=== PATIENT | male | born 1940 | race Caucasian/White ===

== ENCOUNTER 2016-07-27 11:20 | Inpatient (IN) | payer MEDICARE ==
[2016-07-27] MEDS ORDERED: SODIUM CHLORIDE 0.9% 10 ML FLUSH FLUSH PRN (11:42)
[2016-07-27 11:51] LABS: AUTOMATED BASOPHIL 0.3 % (0-2); AUTOMATED EOSINOPHIL 0.4 % (0-5); AUTOMATED LYMPH 11.3 % (17-44); AUTOMATED MONOCYTE 6.9 % (3-10); AUTOMATED NEUTROPHIL 81.1 % (45-76); MPV 11.1 fL (7.4-10.4)
[2016-07-27 12:06] LABS: PARTIAL THROMB. TIME 25.6 SEC (22-35); PT-INR 1.2
[2016-07-27 12:08] LABS: BLOOD UREA NITROGEN 15 MG/DL (9-20); CALCIUM 9.2 MG/DL (8.4-10.2); CALCULATED OSMOLALITY 267 MOs/Kg (270-290); CHLORIDE 99 mEq/L (98-107); GLUCOSE 201 MG/DL (70-99); SODIUM LEVEL 135 mEq/L (137-146); TOTAL PROTEIN 8.1 G/DL (6.3-8.2)
[2016-07-27] MEDS ORDERED: METOPROLOL 5 MG/5 ML SDV IV ONE (12:09)
[2016-07-27] MEDS ORDERED: HYDROmorphone 1 MG INJECTION IV ONE (12:09)
--- NOTE | 2016-07-27 12:15 | DIRPT ---
CLINICAL DATA: 89-year-old male with headache. Right-sided weakness. Initial encounter. EXAM: CT HEAD WITHOUT CONTRAST TECHNIQUE: Contiguous axial images were obtained from the base of the skull through the vertex without intravenous contrast. COMPARISON: None. FINDINGS: No intracranial hemorrhage. Small vessel disease type changes. Slightly dense left carotid terminus. Thrombus not excluded. No other definitive findings of large acute thrombotic infarct. MR and MR angiogram may prove helpful for further delineation. Global atrophy. Ventricular prominence felt to be related to atrophy rather hydrocephalus. No intracranial mass lesion noted on this unenhanced exam. Vascular calcifications. Post lens replacement. Mastoid air cells, middle ear cavities and visualized paranasal sinuses are relatively clear with minimal mucosal thickening left maxillary sinus. IMPRESSION: No intracranial hemorrhage. Small vessel disease type changes. Slightly dense left carotid terminus. Thrombus not excluded. No other definitive findings of large acute thrombotic infarct. MR and MR angiogram may prove helpful for further delineation. Global atrophy. These results were called by telephone at the time of interpretation on 07/27/2016 at 12:04 pm to DL HILL, who verbally acknowledged these results. Electronically Signed By: Joel Lim M.D. On: 07/27/2016 12:12
--- NOTE | 2016-07-27 12:35 | EDPRACDOC ---
- General Information Information Source: Patient, Family - History of Present Illness Onset: YEST HPI: PT PRESENTS TODAY WITH FAMILY FOR WYMAN AND POSSIBLE STROKE. PT STATES THAT HE BEGAN HAVING A WYMAN LAST NIGHT AND WHEN FAMILY CAME TO PICK PT UP TODAY FOR THEIR USUAL OUTING, FAMILY NOTED LEFT SIDED FACIAL DROOP. PTS ONLY COMPLAINT IS WYMAN. APPARENT FACIAL DROOP, BUT PT APPEARS STABLE. Location: Reports: Generalized Pain Quality: Reports: Severe, Throbbing Relevant History of: Reports: None Associated Signs and Symptoms: Reports: Other <Darline Stanley - Last Filed: 07/27/16 13:00> <Pete Gupta - Last Filed: 07/27/16 13:19> - General Information Chief Complaint: Headache Stated Complaint: HEADACHE Time Seen by Provider: 07/27/16 11:41 Home Medications: Home Medications Alfuzosin HCl [Alfuzosin HCl ER] 10 mg PO DAILY 07/27/16 Amlodipine [Norvasc] 5 mg PO HS 07/27/16 Benazepril HCl [Lotensin] 20 mg PO QAM 07/27/16 MetFORMIN (Immediate Release) [GLUCOPHAGE Immed Release] 1,000 mg PO BID Metoprolol Tartrate [Lopressor] 100 mg PO BID 07/27/16 Simvastatin [Zocor] 40 mg PO HS 07/27/16 Allergies/Adverse Reactions: Allergies Allergy/AdvReac Type Severity Reaction Status Date / Time No Known Allergies Allergy Verified 07/27/16 11:26 ED Past Medical History - History Reviewed Yes Nurses notes reviewed and agree except as marked - Patient Medical History Cardiac History: Reports: Hypertension, Heart Attack Psychological History: Denies: Depression - Social Medical History Smoking Status: Former smoker <Darline Stanley - Last Filed: 07/27/16 13:00> EDM Review of Systems - Review of Systems ROS Negative Except as Marked: Yes All systems reviewed and were negative except as marked ROS Unobtainable: Yes Hx Limited due to age/level of understanding of patient Constitutional: No Symptoms Reported Eyes: No Symptoms Reported Respiratory: No Symptoms Reported Cardiovascular: No Symptoms Reported Gastrointestinal: No Symptoms Reported Neurological: Headache, Speech Difficulty Musculoskeletal: No Symptoms Reported <Darline Stanley - Last Filed: 07/27/16 13:00> - Physical Exam Constitutional: Alert (Awake), No apparent distress Oriented to: Time, Person, Place Last recorded Vital Signs: Last Vital Signs Temp 97.3 F L 07/27/16 11:21 Pulse 97 07/27/16 12:16 Resp 18 07/27/16 12:16 BP 183/96 H 07/27/16 12:16 Pulse Ox 94 07/27/16 12:16 Oxygen Pulse Oxygen Saturation 94 O2 Device Room Air Oxygen Flow Rate Fraction of Inspired Oxygen ( FIO2) - HEENT Head: Normal Eye Exam: Normal Neck: Normal, Denies Pain, Midline - Respiratory/Cardiovascular Respiratory: Normal - CTA Cardiovascular: Tachycardia, Irregular - GI Palpation: Normal Tenderness: Non tender - Musculoskeletal Back: Normal Extremities: Normal - Integumentary Skin: Normal Lymphatics: Normal - Neurologic Mood Description: Appropriate, Calm <Darline Stanley - Last Filed: 07/27/16 13:00> - Physical Exam Last recorded Vital Signs: Last Vital Signs Temp 97.3 F L 07/27/16 11:21 Pulse 72 07/27/16 13:00 Resp 18 07/27/16 13:00 BP 196/98 H 07/27/16 13:00 Pulse Ox 93 07/27/16 13:00 Oxygen Pulse Oxygen Saturation 93 O2 Device Nasal Cannula Oxygen Flow Rate 2 Fraction of Inspired Oxygen ( FIO2) <Pete Gupta - Last Filed: 07/27/16 13:19> - Re-evaluation Re-evaluation 1 Re-evaluation Time: 12:53 Re-evaluation: PT WAS GIVEN METOPROLOL AND DILAUDID FOR BP AND WYMAN. MEDS WERE PUSHED SLOWLY PER CRISMA. PT SUDDENLY FELT VERY NAUSEATED AND SHOB. BP DROPPED FROM 183/96 TO 120/64 IN A MATTER OF 45 MINS. SECOND IV LINE WAS STARTED AND 2 BAGS OF NS WERE HUNG. EKG WAS REPEATED. PT SLOWLY BEGAN TO FEEL BETTER SHORTLY AFTER THE BOLUS. DR. GUPTA NOTIFIED. WITH FURTHER RESEARCH, PT STATED THAT HE STOPPED ALL OF HIS MEDICATIONS ( UNSURE TO WHY), INCLUDING METOPROLOL, WHICH WAS CONTROLLING HIS AFIB. PT HAS NEVER BEEN ON ANTICOAGULANTS. - Results 07/27/16 11:40 07/27/16 11:40 WBC 6.9 xk/uL (3.8-10.8) 07/27/16 11:40 RBC 5.49 xM/uL (4.70-6.10) 07/27/16 11:40 Hgb 16.9 g/dL (14.0-18.0) 07/27/16 11:40 Hct 50.5 % (42-52) 07/27/16 11:40 MCV 92 fL (80-94) 07/27/16 11:40 MCH 30.7 pg (27-32) 07/27/16 11:40 MCHC 33.4 g/dl (33-36) 07/27/16 11:40 RDW 13.7 % (11.5-14.5) 07/27/16 11:40 Plt Count 102 xk/uL (130-400) L 07/27/16 11:40 MPV 11.1 fL (7.4-10.4) H 07/27/16 11:40 Neut % (Auto) 81.1 % (45-76) H 07/27/16 11:40 Lymph % (Auto) 11.3 % (17-44) L 07/27/16 11:40 [place] % (Auto) 6.9 % (3-10) 07/27/16 11:40 Eos % (Auto) 0.4 % (0-5) 07/27/16 11:40 Baso % (Auto) 0.3 % (0-2) 07/27/16 11:40 Absolute Neuts (auto) 5.59 xk/uL (1.7-8.2) 07/27/16 11:40 Absolute Lymphs (auto) 0.76 xk/uL (0.65-4.75) 07/27/16 11:40 PT 12.0 SEC (9.2-11.2) H 07/27/16 11:40 INR 1.2 07/27/16 11:40 APTT 25.6 SEC (22-35) 07/27/16 11:40 Sodium 135 mEq/L (137-146) L 07/27/16 11:40 Potassium 4.5 mEq/L (3.5-5.1) 07/27/16 11:40 Chloride 99 mEq/L (98-107) 07/27/16 11:40 Carbon Dioxide 22 mMOL/L (22-33) 07/27/16 11:40 Anion Gap 19 mEq/L (8-16) H 07/27/16 11:40 BUN 15 MG/DL (9-20) 07/27/16 11:40 Creatinine 0.70 MG/DL (0.66-1.25) 07/27/16 11:40 Estimated GFR (MDRD) > 60 mL/min (>=60) 07/27/16 11:40 Glucose 201 MG/DL (70-99) H 07/27/16 11:40 Calculated Osmolality 267 MOs/Kg (270-290) L 07/27/16 11:40 Calcium 9.2 MG/DL (8.4-10.2) 07/27/16 11:40 Total Bilirubin 1.1 MG/DL (0.2-1.3) 07/27/16 11:40 AST 27 IU/L (17-59) 07/27/16 11:40 ALT 40 IU/L (21-72) 07/27/16 11:40 Alkaline Phosphatase 77 IU/L (50-160) 07/27/16 11:40 Troponin I 0.02 ng/mL (<.04) 07/27/16 11:40 Total Protein 8.1 G/DL (6.3-8.2) 07/27/16 11:40 Albumin 4.4 G/DL (3.5-5.0) 07/27/16 11:40 Lab Results 07/27/16 07/27/16 07/27/16 11:40 11:40 11:40 WBC 6.9 RBC 5.49 Hgb 16.9 Hct 50.5 MCV 92 MCH 30.7 MCHC 33.4 RDW 13.7 Plt Count 102 L MPV 11.1 H Neut % (Auto) 81.1 H Lymph % (Auto) 11.3 L [place] % (Auto) 6.9 Eos % (Auto) 0.4 Baso % (Auto) 0.3 Absolute Neuts (auto) 5.59 Absolute Lymphs (auto) 0.76 PT 12.0 H INR 1.2 APTT 25.6 Sodium 135 L Potassium 4.5 Chloride 99 Carbon Dioxide 22 Anion Gap 19 H BUN 15 Creatinine 0.70 Estimated GFR (MDRD) > 60 Glucose 201 H Calculated Osmolality 267 L Calcium 9.2 Total Bilirubin 1.1 AST 27 ALT 40 Alkaline Phosphatase 77 Troponin I 0.02 Total Protein 8.1 Albumin 4.4 - EKG EKG #1 EKG Time: 11:39 -: Yes EKG interpreted by me Rate: bpm: 105 [place]: Normal Rhythm: Afib Block: None Hypertrophy: None ST: Normal EKG #2 EKG Time: 12:43 -: Yes EKG interpreted by me Rate: bpm: 66 [place]: Normal Rhythm: Afib Block: None Hypertrophy: None ST: Normal - Additional Information PT HAS APPARENT LEFT FACIAL DROOP AND LEFT ANTENNA RIGGER WEAKNESS. WHEN ASKED TO READ SIMPLE WORDS, PT IS UNABLE TO. SON STATES HE READS THE NEWS PAPER DAILY. PT STATES THAT HE CAN SEE ALL LETTERS. PT IS ABLE TO IDENTIFY OBJECTS. <JadenDarline galarza K - Last Filed: 07/27/16 13:00> - Results 07/27/16 11:40 07/27/16 11:40 WBC 6.9 xk/uL (3.8-10.8) 07/27/16 11:40 RBC 5.49 xM/uL (4.70-6.10) 07/27/16 11:40 Hgb 16.9 g/dL (14.0-18.0) 07/27/16 11:40 Hct 50.5 % (42-52) 07/27/16 11:40 MCV 92 fL (80-94) 07/27/16 11:40 MCH 30.7 pg (27-32) 07/27/16 11:40 MCHC 33.4 g/dl (33-36) 07/27/16 11:40 RDW 13.7 % (11.5-14.5) 07/27/16 11:40 Plt Count 102 xk/uL (130-400) L 07/27/16 11:40 MPV 11.1 fL (7.4-10.4) H 07/27/16 11:40 Neut % (Auto) 81.1 % (45-76) H 07/27/16 11:40 Lymph % (Auto) 11.3 % (17-44) L 07/27/16 11:40 [place] % (Auto) 6.9 % (3-10) 07/27/16 11:40 Eos % (Auto) 0.4 % (0-5) 07/27/16 11:40 Baso % (Auto) 0.3 % (0-2) 07/27/16 11:40 Absolute Neuts (auto) 5.59 xk/uL (1.7-8.2) 07/27/16 11:40 Absolute Lymphs (auto) 0.76 xk/uL (0.65-4.75) 07/27/16 11:40 PT 12.0 SEC (9.2-11.2) H 07/27/16 11:40 INR 1.2 07/27/16 11:40 APTT 25.6 SEC (22-35) 07/27/16 11:40 Sodium 135 mEq/L (137-146) L 07/27/16 11:40 Potassium 4.5 mEq/L (3.5-5.1) 07/27/16 11:40 Chloride 99 mEq/L (98-107) 07/27/16 11:40 Carbon Dioxide 22 mMOL/L (22-33) 07/27/16 11:40 Anion Gap 19 mEq/L (8-16) H 07/27/16 11:40 BUN 15 MG/DL (9-20) 07/27/16 11:40 Creatinine 0.70 MG/DL (0.66-1.25) 07/27/16 11:40 Estimated GFR (MDRD) > 60 mL/min (>=60) 07/27/16 11:40 Glucose 201 MG/DL (70-99) H 07/27/16 11:40 Calculated Osmolality 267 MOs/Kg (270-290) L 07/27/16 11:40 Calcium 9.2 MG/DL (8.4-10.2) 07/27/16 11:40 Total Bilirubin 1.1 MG/DL (0.2-1.3) 07/27/16 11:40 AST 27 IU/L (17-59) 07/27/16 11:40 ALT 40 IU/L (21-72) 07/27/16 11:40 Alkaline Phosphatase 77 IU/L (50-160) 07/27/16 11:40 Troponin I 0.02 ng/mL (<.04) 07/27/16 11:40 Total Protein 8.1 G/DL (6.3-8.2) 07/27/16 11:40 Albumin 4.4 G/DL (3.5-5.0) 07/27/16 11:40 Lab Results 07/27/16 07/27/16 07/27/16 11:40 11:40 11:40 WBC 6.9 RBC 5.49 Hgb 16.9 Hct 50.5 MCV 92 MCH 30.7 MCHC 33.4 RDW 13.7 Plt Count 102 L MPV 11.1 H Neut % (Auto) 81.1 H Lymph % (Auto) 11.3 L [place] % (Auto) 6.9 Eos % (Auto) 0.4 Baso % (Auto) 0.3 Absolute Neuts (auto) 5.59 Absolute Lymphs (auto) 0.76 PT 12.0 H INR 1.2 APTT 25.6 Sodium 135 L Potassium 4.5 Chloride 99 Carbon Dioxide 22 Anion Gap 19 H BUN 15 Creatinine 0.70 Estimated GFR (MDRD) > 60 Glucose 201 H Calculated Osmolality 267 L Calcium 9.2 Total Bilirubin 1.1 AST 27 ALT 40 Alkaline Phosphatase 77 Troponin I 0.02 Total Protein 8.1 Albumin 4.4 <Pete Gupta - Last Filed: 07/27/16 13:19> - Departure Disposition: Admit IP To This Hospital <Darline Stanley - Last Filed: 07/27/16 13:00> - Departure Yes I personally saw and evaluated the patient. Disposition: Admit IP To This Hospital Decision to Admit Time: 13:18 Decision to admit date: 07/27/16 Decision to admit: from ED - Physician Consulted Hospitalist Time Called: 13:18 Provider Called: Cecilia Pruitt Time Corporate Sales Representative Returned Call: 13:19 <Pete Gupta - Last Filed: 07/27/16 13:19> - Departure Condition: Fair Final Diagnosis: Non compliance w medication regimen CVA (cerebral vascular accident) Qualifiers: CVA mechanism: unspecified Qualified Code(s): I63.9 - Cerebral infarction, unspecified Atrial fibrillation Qualifiers: Atrial fibrillation type: chronic Qualified Code(s): I48.2 - Chronic atrial fibrillation Instructions: Atrial Fibrillation (ED)
[2016-07-27] MEDS ORDERED: ONDANSETRON HCL 4 MG/2 ML VIAL IV ONE (12:59)
[2016-07-27] MEDS: NS 1,000 ML IV SCH ×2 (13:00→14:11)
--- NOTE | 2016-07-27 13:13 | DIRPT ---
CLINICAL DATA: Chest pain, headache and weakness. EXAM: PORTABLE CHEST 1 VIEW COMPARISON: None. FINDINGS: Cardiomediastinal silhouette is normal. Mediastinal contours appear intact. There is no evidence of focal airspace consolidation, pleural effusion or pneumothorax. There is elevation of the left hemidiaphragm with secondary volume loss of the left lung base. Osseous structures are without acute abnormality. Soft tissues are grossly normal. IMPRESSION: No active disease. Elevation of the left hemidiaphragm. Query left phrenic nerve injury. Electronically Signed By: Jess Mead M.D. On: 07/27/2016 13:10
[2016-07-27] MEDS ORDERED: TUSSIONEX 5 ML ORAL SYRINGE PO PRN (13:21)
[2016-07-27] MEDS ORDERED: DEXTROSE 25 GM/50 ML PFS IV PRN (13:21)
[2016-07-27] MEDS ORDERED: GLUCAGON 1 MG VIAL SQ PRN (13:21)
[2016-07-27] MEDS ORDERED: GLUCOSE (ORAL GEL) 15 GM TUBE PO PRN (13:21)
[2016-07-27] MEDS ORDERED: ONDANSETRON HCL 4 MG/2 ML VIAL IV PRN (13:21)
[2016-07-27] MEDS ORDERED: BENZONATATE 100 MG PERLES PO PRN (13:21)
[2016-07-27] MEDS ORDERED: BISACODYL 10 MG SUPP PR PRN (13:21)
[2016-07-27] MEDS ORDERED: ACETAMINOPHEN 325 MG SUPP PR PRN (13:21)
[2016-07-27] MEDS ORDERED: SENNA CONCENTRATE TAB PO PRN (13:21)
[2016-07-27] MEDS ORDERED: PROMETHAZINE 25 MG/ML VIAL IV PRN (13:21)
[2016-07-27] MEDS ORDERED: ATORVASTATIN 40 MG TAB PO ONE (13:29)
--- NOTE | 2016-07-27 13:32 | HISTPHYS ---
- Chief Complaint Blurred vision and stumbling - History of Present Illness Patient is a 75-year-old white male whose has agoraphobia. On weekends 1 of his sons will come by to pick him up for lunch. He was noted was noted by his son to be stumbling as he walked to the vehicle. Son was concerned he had a stroke when he noticed the left side of his face drooping. With this he was brought into the emergency room complaining for further evaluation. CT of the head failed to show any evidence of acute stroke but he did have some suggestion of significant tapering of the left carotid artery. On examination he was noted by the emergency room physician have weak left upper extremity left-sided neglect and left facial weakness with mild confusion. I discussed this with the family friend who was in the room at the time of my examination and she indicated that this is unusual for him. Significant is past his that he stopped his antihypertensive therapy within the past few months because of fear of his blood pressure dropping too low. He also was concerned about his blood sugar dropping with the glyburide which was discontinued as well. He did however continue his 325 mg aspirin, Zocor, as well as metformin 1000 mg twice daily. He claims to have quit smoking at least 48 years ago and does not drink alcoholic beverages. He mentions a coronary artery stent 7 years ago placed [address] Dr[address] Manrique at [facility]. - Medical History Cardiac History: Reports: Coronary Artery Disease, Atrial Fibrillation, Hypertension, Heart Attack Respiratory History: Reports: No Significant History GI/ History: Reports: No Significant History Musculoskeletal History: Reports: Arthritis Systemic History: Reports: Cancer (Prostate) Neurological History: Reports: No Significant History Psychological History: Denies: Depression - Surgical History Reports: Other (Bilateral lens implants, abdominal hernia repair) - Medictions/Allergies Allergies No Known Allergies Allergy (Verified 07/27/16 11:26) Current Medication List: Reviewed Home Medications Alfuzosin HCl [Alfuzosin HCl ER] 10 mg PO DAILY 07/27/16 Amlodipine [Norvasc] 5 mg PO HS 07/27/16 Benazepril HCl [Lotensin] 20 mg PO QAM 07/27/16 MetFORMIN (Immediate Release) [GLUCOPHAGE Immed Release] 1,000 mg PO BID Metoprolol Tartrate [Lopressor] 100 mg PO BID 07/27/16 Simvastatin [Zocor] 40 mg PO HS 07/27/16 - Family History Reports: Hypertension, Diabetes - Social History Travel Outside of [place] in the Last 3 Months?: No Lives: with Spouse Smoking Status: Former smoker Social History: Denies: Alcohol Use, Substance Use Disorder - Review of Systems Yes Review of systems cannot be obtained due to the patient's medical condition - Physical Exam Vital Signs: Initial Vitals Temperature 97.3 F L 07/27/16 11:21 Pulse Rate 113 07/27/16 11:21 Respiratory Rate 20 07/27/16 11:21 Blood Pressure 177/105 H 07/27/16 11:21 Pulse Oxygen Saturation 95 07/27/16 11:21 Constitutional: No apparent distress, Alert Oriented to: Person, Place - HEENT Head: Normal (normocephalic, atraumatic.), Other (No cervical lymphadenopathy. No supraclavicular lymphadenopathy. Neck: No palpable mass, supple , trachea midline.) Eye: Other (Dysconjugate gaze and states everything is blurry with the use of his glasses). negative: Conjunctival Injection, Edema, Pale Conjunctiva, Scleral Icterus Oropharynx: Normal (Pharynx: Moist without exudate,Gums-no swelling, No oropharyngeal lesions or erythema, Mucous membranes are dry. But does have weakness left facial muscle.) ENT EAC: Normal (No oropharyngeal lesions or erythema. Mucous membranes are dry. ) TMJ: Normal. negative: Crepitance, Tender Nose: No Symptoms Reported (septum midline, Nares patent, without discharge or bleeding.) Respiratory: Normal - CTA (Clear to auscultation bilaterally. No wheezing, rales , rhonchi. Chest wall movements are symmetric. No use of accessory muscles to breathe.) Cardiovascular: Normal (RRR , Normal S1, S2. No murmurs, rubs, or gallops. PMI non-displaced. Carotids: no carotid bruits. No bradycardia or tachycardia. DP pulses 2+ bilaterally.) - GI Auscultation: Normal (normal active sounds) Palpation: Normal (Soft,non distended,nontender. No hepatosplenomegaly.) Tenderness: Non tender (No rebound or guarding) Gtz's Sign: Negative - Musculoskeletal Back: Normal (Non-Tender) Extremities: Normal (Normal tone, DP pulses 2+ bilaterally, No cyanosis or edema bilaterally, FROM bilaterally.) Spine: non-tender, normal alignment, limited range of motion - Integumentary Skin: Normal (Clean, dry, and intact. No rashes. No lesions.) Lymphatics: Normal (No cervical lymphadenopathy. No supraclavicular lymphadenopathy.) - Neurologic Memory Impaired: Short-term Motor Function: Abnormal (Mild left upper extremity weakness) Cranial Nerve: negative: Normal (Left facial weakness) Cerebellar: Past-Pointing Mood Description: Normal (Fully oriented. Normal and appropriate affect.) Thought: Coherent (But confused) Perception: Normal (Normal and appropriate affect.) - Focused CV Perfusion Exam Vital Signs: Last Vital Signs Temp 97.3 F L 07/27/16 11:21 Pulse 72 07/27/16 13:00 Resp 18 07/27/16 13:00 BP 196/98 H 07/27/16 13:00 Pulse Ox 93 07/27/16 13:00 - Lab Results 07/27/16 11:40 07/27/16 11:40 Laboratory Results - last 24 hr 07/27/16 07/27/16 07/27/16 11:30 11:30 11:40 WBC RBC Hgb Hct MCV MCH MCHC RDW Plt Count MPV Neut % (Auto) Lymph % (Auto) [place] % (Auto) Eos % (Auto) Baso % (Auto) Absolute Neuts (auto) Absolute Lymphs (auto) ESR PT INR APTT Sodium 135 L Potassium 4.5 Chloride 99 Carbon Dioxide 22 Anion Gap 19 H BUN 15 Creatinine 0.70 Estimated GFR (MDRD) > 60 Glucose 201 H Hemoglobin A1c 7.8 H Calculated Osmolality 267 L Calcium 9.2 Total Bilirubin 1.1 AST 27 ALT 40 Alkaline Phosphatase 77 Troponin I 0.02 Total Protein 8.1 Albumin 4.4 TSH 2.42 Urine Color Urine Clarity Urine pH Ur Specific [place] Urine Protein Urine Glucose (UA) Urine Ketones Urine Occult Blood Urine Nitrite Urine Bilirubin Urine Urobilinogen Ur Leukocyte Esterase Urine RBC Urine WBC Ur Epithelial Cells Urine Bacteria Hyaline Casts Urine Mucus 07/27/16 07/27/16 07/27/16 11:40 11:40 14:45 WBC 6.9 RBC 5.49 Hgb 16.9 Hct 50.5 MCV 92 MCH 30.7 MCHC 33.4 RDW 13.7 Plt Count 102 L MPV 11.1 H Neut % (Auto) 81.1 H Lymph % (Auto) 11.3 L [place] % (Auto) 6.9 Eos % (Auto) 0.4 Baso % (Auto) 0.3 Absolute Neuts (auto) 5.59 Absolute Lymphs (auto) 0.76 ESR PT 12.0 H INR 1.2 APTT 25.6 Sodium Potassium Chloride Carbon Dioxide Anion Gap BUN Creatinine Estimated GFR (MDRD) Glucose Hemoglobin A1c Calculated Osmolality Calcium Total Bilirubin AST ALT Alkaline Phosphatase Troponin I 0.02 Total Protein Albumin TSH Urine Color Urine Clarity Urine pH Ur Specific [place] Urine Protein Urine Glucose (UA) Urine Ketones Urine Occult Blood Urine Nitrite Urine Bilirubin Urine Urobilinogen Ur Leukocyte Esterase Urine RBC Urine WBC Ur Epithelial Cells Urine Bacteria Hyaline Casts Urine Mucus 07/27/16 07/27/16 07/27/16 14:45 15:42 17:25 WBC RBC Hgb Hct MCV MCH MCHC RDW Plt Count MPV Neut % (Auto) Lymph % (Auto) [place] % (Auto) Eos % (Auto) Baso % (Auto) Absolute Neuts (auto) Absolute Lymphs (auto) ESR 1 PT INR APTT Sodium Potassium Chloride Carbon Dioxide Anion Gap BUN Creatinine Estimated GFR (MDRD) Glucose Hemoglobin A1c Calculated Osmolality Calcium Total Bilirubin AST ALT Alkaline Phosphatase Troponin I 0.02 Total Protein Albumin TSH Urine Color Yellow Urine Clarity Clear Urine pH 6.0 Ur Specific [place] 1.020 Urine Protein 1+ H Urine Glucose (UA) 2+ Urine Ketones 1+ H Urine Occult Blood Neg Urine Nitrite Neg Urine Bilirubin Neg Urine Urobilinogen 0.2 Ur Leukocyte Esterase Neg Urine RBC 0-2 Urine WBC 2-5 H Ur Epithelial Cells Occ Urine Bacteria Few Hyaline Casts 5-10 H Urine Mucus Sm amt - Diagnostic Findings CT of the head showed the following: FINDINGS: No intracranial hemorrhage. Small vessel disease type changes. Slightly dense left carotid terminus. Thrombus not excluded. No other definitive findings of large acute thrombotic infarct. MR and MR angiogram may prove helpful for further delineation. Global atrophy. Ventricular prominence felt to be related to atrophy rather hydrocephalus. No intracranial mass lesion noted on this unenhanced exam. Vascular calcifications. Post lens replacement. Mastoid air cells, middle ear cavities and visualized paranasal sinuses are relatively clear with minimal mucosal thickening left maxillary sinus. IMPRESSION: No intracranial hemorrhage. Small vessel disease type changes. Slightly dense left carotid terminus. Thrombus not excluded. No other definitive findings of large acute thrombotic infarct. MR and MR angiogram may prove helpful for further delineation. Global atrophy. These results were called by telephone at the time of interpretation on 07/27/2016 at 12:04 pm to DL HILL, who verbally acknowledged these results. Carotid Doppler failed to show any evidence of internal carotid artery stenosis, just right external carotid artery stenosis. - Assessment (1) CVA (cerebral vascular accident) I63.9 - CEREBRAL INFARCTION, UNSPECIFIED Acute Present on Admission: Yes Qualifiers: CVA mechanism: occlusion Precerebral and cerebral artery: middle cerebral artery Laterality of affected vessel: right Qualified Code(s): I63.511 - Cerebral infarction due to unspecified occlusion or stenosis of right middle cerebral artery MRI is ordered for tomorrow morning. Physical occupational and speech therapies are requested. (2) Hyperlipidemia E78.5 - HYPERLIPIDEMIA, UNSPECIFIED Chronic Present on Admission: Yes Qualifiers: Hyperlipidemia type: mixed hyperlipidemia Qualified Code(s): E78.2 - Mixed hyperlipidemia Statin changed to Lipitor since he is on calcium channel mathew will interfere with his Zocor. Recheck lipids tomorrow. (3) Hypertension I10 - ESSENTIAL (PRIMARY) HYPERTENSION Chronic Present on Admission: Yes Qualifiers: Hypertension type: essential hypertension Qualified Code(s): I10 - Essential (primary) hypertension Careful with the antihypertensive therapy not wanting to drop his blood pressure and exacerbate stroke. (4) Hyperglycemia R73.9 - HYPERGLYCEMIA, UNSPECIFIED Acute Present on Admission: Yes Monitor glucoses accordingly. Glycohemoglobin 7.8 and urine microalbumin pending. (5) Atrial fibrillation I48.91 - UNSPECIFIED ATRIAL FIBRILLATION Chronic Present on Admission: Yes Qualifiers: Atrial fibrillation type: paroxysmal Qualified Code(s): I48.0 - Paroxysmal atrial fibrillation Admit to telemetry and monitor. - Plan Due to the presence of and / or the risk of deterioration, my attendance to this patient required critical care time, including assessment/reassessment, documentation, ordering and interpreting ancillary studies, discussion with staff and consultants,patient and family, and excludes time spent on separately billable procedures. This individual is critically ill and in danger of dying. Case Care Discussed with: Patient, Nursing Staff, Resource Management Total Time: Critical care time spent 1 hour 24 minutes Critical Care: Yes Code: 291 (292)
[2016-07-27 15:59] LABS: LEUKOCYTES/URINE NEG (NEGATIVE); NITRITE/URINE NEG (NEGATIVE); RBC/URINE 0-2 (0-2); URINE OCCULT BLOOD NEG (NEG/TRACE)
[2016-07-27] MEDS: REGULAR INSULIN 100 UNITS/ML - 3 ML VIAL SQ SCH ×2 (17:13→22:03)
[2016-07-27] MEDS: ENOXAPARIN 40 MG/0.4 ML PFS SQ SCH (17:14)
[2016-07-27] MEDS: MetFORMIN 1000 MG IMMED REL TAB PO SCH (17:40)
--- NOTE | 2016-07-27 17:43 | DIRPT ---
CLINICAL DATA: Stroke. EXAM: BILATERAL CAROTID DUPLEX ULTRASOUND TECHNIQUE: Eric scale imaging, color Doppler and duplex ultrasound were performed of bilateral carotid and vertebral arteries in the neck. COMPARISON: None. FINDINGS: Criteria: Quantification of carotid stenosis is based on velocity parameters that correlate the residual internal carotid diameter with NASCET-based stenosis levels, using the diameter of the distal internal carotid lumen as the denominator for stenosis measurement. The following velocity measurements were obtained: RIGHT ICA: 89/27 cm/sec CCA: 54/8 cm/sec SYSTOLIC ICA/CCA RATIO: 1.65 DIASTOLIC ICA/CCA RATIO: 3.45 (a function of low common carotid artery end-diastolic velocity rather than elevated ICA velocity) ECA: 260 cm/sec LEFT ICA: 60/18 cm/sec CCA: 57/10 cm/sec SYSTOLIC ICA/CCA RATIO: 1.06 DIASTOLIC ICA/CCA RATIO: 1.78 ECA: 72 cm/sec RIGHT CAROTID ARTERY: Scattered atherosclerotic plaque with shadowing calcification. No visualized dissection or ulcerated plaque RIGHT VERTEBRAL ARTERY: Not confidently visualized. LEFT CAROTID ARTERY: Scattered atherosclerotic plaque with shadowing calcification. No visualized dissection or ulcerated plaque LEFT VERTEBRAL ARTERY: Patent and antegrade Mildly irregular heartbeat without specific pattern. IMPRESSION: 1. Cervical carotid atherosclerosis. No evidence of ICA stenosis greater than 50%. 2. High-grade right ECA stenosis. 3. Right vertebral artery not confidently visualized. Electronically Signed By: Eduar Barker M.D. On: 07/27/2016 17:41
[2016-07-27] MEDS: ACETAMINOPHEN 325 MG/TAB TABLET PO PRN (19:35)
[2016-07-27] MEDS ORDERED: OXYCODONE HCL 5 MG TABLET PO PRN (19:40)
[2016-07-27] MEDS ORDERED: CLOPIDOGREL 75 MG TAB PO ONE ×2 (19:50→20:29)
[2016-07-27] MEDS: METOPROLOL TARTRATE 100 MG TAB PO SCH (21:58)
[2016-07-27] MEDS: AMLODIPINE 5 MG TAB PO SCH (22:00)
[2016-07-28 03:54] LABS: MPV 12.4 fL (7.4-10.4)
[2016-07-28 04:09] LABS: BLOOD UREA NITROGEN 15 MG/DL (9-20); CALCIUM 9.1 MG/DL (8.4-10.2); CALCULATED OSMOLALITY 260 MOs/Kg (270-290); CHLORIDE 98 mEq/L (98-107); GLUCOSE 157 MG/DL (70-99); LDL (calc.) 78.8 MG/DL (<100); SODIUM LEVEL 133 mEq/L (137-146); VLDL (calc.) 22.2 MG/DL (5-40)
[2016-07-28 05:25] VITALS: BMI 30.1
[2016-07-28] MEDS: ACETAMINOPHEN 325 MG/TAB TABLET PO PRN (05:27)
[2016-07-28] MEDS: MetFORMIN 1000 MG IMMED REL TAB PO SCH ×2 (06:18→17:45)
[2016-07-28] MEDS: REGULAR INSULIN 100 UNITS/ML - 3 ML VIAL SQ SCH ×4 (06:18→22:44)
[2016-07-28] MEDS: METOPROLOL TARTRATE 100 MG TAB PO SCH ×2 (08:34→21:14)
[2016-07-28] MEDS: TAMSULOSIN HCL 0.4 MG CAP PO SCH (08:34)
[2016-07-28] MEDS: BENAZEPRIL 20 MG TAB PO SCH (08:35)
[2016-07-28] MEDS: CLOPIDOGREL 75 MG TAB PO SCH (08:35)
[2016-07-28] MEDS ORDERED: OXYCODONE HCL 5 MG TABLET PO PRN (08:40)
[2016-07-28 10:51] VITALS: TEMP 97.7
--- NOTE | 2016-07-28 11:35 | CAPUECHO ---
INDICATION: ISCHEMIC STROKE EVAL HEIGHT: 188.0 cm (6 ft 2.0 in) WEIGHT: 103.4 kg (228.0 lbs) BP: 156/91 BSA: 2.643799 m MEASUREMENTS 2D RVIDd: 3.1 cm LA Diam: 4.9 cm EF Biplane: 63.10 % LAESV MOD A4C: 119.9 ml LAESV MOD A2C: 96.6 ml LAESV Index (A-L): 50.94 ml/m M-MODE IVSd: 1.2 cm LVIDd: 4.3 cm LVPWd: 1.2 cm LVIDs: 3.1 cm EF(Teich): 55 % DOPPLER MV E Maximino: 0.98 m/s MV A Maximino: 0.00 m/s MV PHT: 41.75 ms MVA By PHT: 5.27 cm LVOT Vmax: 0.77 m/s AV Vmax: 1.13 m/s TR Vmax: 2.87 m/s TR maxP mmHg RVSP: 43.02 mmHg FINDINGS ------- Procedure:2D images, m-mode, color and spectral Doppler were obtained and reviewed. ECG rhythm:Atrial fibrillation. Study quality:This was a technically adequate study. Left Ventricle:The left ventricular size is normal. There is mild concentric left ventricular hype rtrophy. Overall left ventricular systolic function is normal with, an EF between 55 - 60 %. Right Ventricle:The right ventricle is normal in size and function. Left Atrium:Left atrium is moderately dilated by volume. Right Atrium:The right atrium is moderately enlarged. Aortic Valve:The aortic valve is trileaflet, and appears structurally normal. No aortic stenosis or regurgitation. There is mild aortic valve sclerosis. Mitral Valve:Normal appearing mitral valve. Mild mitral regurgitation is present. Tricuspid Valve:The tricuspid valve appears structurally normal. Mild tricuspid regurgitation pres ent. The right ventricular systolic pressure, as measured by Doppler, is 43 mmhg. Pulmonic Valve:The pulmonic valve is normal. Trace/mild (physiologic) pulmonic regurgitation. Aorta:The aortic root, ascending aorta and aortic arch appear normal. IVC:Normal inferior vena cava with normal inspiratory collapse. Pericardium:There is no pericardial effusion. CONCLUSIONS 1. There is mild concentric left ventricular hypertrophy. 2. Overall left ventricular systolic function is normal with, an EF between 55 - 60 %. 3. Left atrium is moderately dilated by volume. 4. Mild mitral regurgitation is present. 5. Mild tricuspid regurgitation present. 6. The right ventricular systolic pressure, as measured by Doppler, is 43 mmhg. Electronically Signed By: Tommy Gore MD -- Electronically Signed On: 11:34:23
--- NOTE | 2016-07-28 12:11 | DIRPT ---
CLINICAL DATA: 75-year-old male with left facial droop, confusion, and abnormal speech since yesterday. Initial encounter. EXAM: MRI HEAD WITHOUT AND WITH CONTRAST TECHNIQUE: Multiplanar, multiecho pulse sequences of the brain and surrounding structures were obtained without and with intravenous contrast. CONTRAST: 20 mL MultiHance COMPARISON: Head CT without contrast 07/27/2016 FINDINGS: Patchy restricted diffusion in the anterior right MCA territory affecting the operculum, anterior right Miranda radiata, and subcortical white matter and cortex of the right middle frontal gyrus (series 6, image 82). No contralateral or posterior fossa restricted diffusion. Major intracranial vascular flow voids are preserved. T2 and FLAIR hyperintensity in the acutely affected areas with no hemorrhage or mass effect. The underlying bilateral confluent cerebral white matter T2 and FLAIR hyperintensity. Occasional small chronic lacunar infarcts in the cerebellum, more so the left. Mild for age T2 heterogeneity in the deep teixeira matter nuclei appears mostly due to perivascular spaces. No cortical encephalomalacia or chronic cerebral blood products identified. No abnormal enhancement identified. Visible internal auditory structures appear normal. Mastoids are clear. Paranasal sinuses are clear. Negative orbit and scalp soft tissues. Incidental anterior accessory right parotid tissue. Negative visualized cervical spine. Normal bone marrow signal. IMPRESSION: 1. Acute patchy infarcts in the anterior right MCA territory. No associated hemorrhage or mass effect. 2. Underlying moderate for age signal changes most compatible with chronic small vessel disease, including several chronic lacunar infarcts in the cerebellum. Electronically Signed By: Don Blanchard M.D. On: 07/28/2016 12:08
--- NOTE | 2016-07-28 12:32 | GENMEDPROG ---
Notes Reviewed: Yes Events from last night noted and discussed with Clinical Staff Current Medication List: Reviewed DVT Prophylaxis: Yes - Physical Examination Vital Signs and I&O: Last Vital Signs Temp 97.7 F 07/28/16 08:00 Pulse 71 07/28/16 11:47 Resp 18 07/28/16 08:00 BP 169/84 07/28/16 08:00 Pulse Ox 94 07/28/16 09:38 Oxygen Pulse Oxygen Saturation 94 O2 Device Room Air Oxygen Flow Rate 1 Fraction of Inspired Oxygen ( FIO2) Intake & Output 07/25/16 07/26/16 07/27/16 07/28/16 23:59 23:59 23:59 23:59 Intake Total 1255 Output Total 1450 450 Balance -195 -450 Patient's weight 104.19 kg 103.6 kg General: Alert, Oriented x3, No acute distress, Well appearing, Well nourished HEENT: Normal (Normocephalic, atraumatic;EOMI.Sclera white, Nares patent, without discharge or bleeding. No oropharyngeal lesions or erythema. Mucous membranes are dry.) Neck: Non-tender, Normal Trachea alignment, Normal inspection (No cervical lymphadenopathy. No supraclavicular lymphadenopathy.), No Masses palpable, Supple Lymphatics: Normal (No cervical lymphadenopathy. No supraclavicular lymphadenopathy.) Respiratory: Normal - CTA (Clear to auscultation bilaterally. No wheezing, rales , rhonchi. Chest wall movements are symmetric. No use of accessory muscles to breathe.) Cardiovascular: Normal S1, No Gallops,Rubs/Murmurs, Normal S2, Good Pedal Pulses (DP pulses 2+ bilaterally), Irregular (Irregularly irregular). negative : Regular rate and rhythm (Irregularly irregular) GI: Normal bowel sounds (normal active sounds), Soft (non-distended), Non tender , No hepatospenomegaly, No masses Extremities/Musculoskeletal: Normal pulses (DP pulses 2+ bilaterally) Skin: Warm,Dry and Intact, No rashes, No significant lesion Neurological: Strength at 5/5 X4 ext (Motor 5/5 throughout.), Normal tone, Cranial nerves 3-12 NL ( 2-12 grossly intact.) Lab/DI/Studies Reviewed: 07/28/16 03:00 07/28/16 03:00 Laboratory Results - last 24 hr 07/27/16 07/27/16 07/27/16 11:30 11:30 11:30 WBC RBC Hgb Hct MCV MCH MCHC RDW Plt Count MPV ESR Sodium Potassium Chloride Carbon Dioxide Anion Gap BUN Creatinine Estimated GFR (MDRD) Glucose POC Capillary Glucose Hemoglobin A1c 7.8 H Calculated Osmolality Calcium Troponin I Triglycerides Cholesterol LDL Cholesterol, Calc VLDL Cholesterol, Calc HDL Cholesterol Cholesterol/HDL Ratio TSH 2.42 Urine Color Urine Clarity Urine pH Ur Specific [place] Urine Protein Urine Glucose (UA) Urine Ketones Urine Occult Blood Urine Nitrite Urine Bilirubin Urine Urobilinogen Ur Leukocyte Esterase Urine RBC Urine WBC Ur Epithelial Cells Urine Bacteria Hyaline Casts Urine Mucus RPR Nonreactive 07/27/16 07/27/16 07/27/16 14:45 14:45 15:42 WBC RBC Hgb Hct MCV MCH MCHC RDW Plt Count MPV ESR 1 Sodium Potassium Chloride Carbon Dioxide Anion Gap BUN Creatinine Estimated GFR (MDRD) Glucose POC Capillary Glucose Hemoglobin A1c Calculated Osmolality Calcium Troponin I 0.02 Triglycerides Cholesterol LDL Cholesterol, Calc VLDL Cholesterol, Calc HDL Cholesterol Cholesterol/HDL Ratio TSH Urine Color Yellow Urine Clarity Clear Urine pH 6.0 Ur Specific [place] 1.020 Urine Protein 1+ H Urine Glucose (UA) 2+ Urine Ketones 1+ H Urine Occult Blood Neg Urine Nitrite Neg Urine Bilirubin Neg Urine Urobilinogen 0.2 Ur Leukocyte Esterase Neg Urine RBC 0-2 Urine WBC 2-5 H Ur Epithelial Cells Occ Urine Bacteria Few Hyaline Casts 5-10 H Urine Mucus Sm amt RPR 07/27/16 07/27/16 07/27/16 17:12 17:25 22:02 WBC RBC Hgb Hct MCV MCH MCHC RDW Plt Count MPV ESR Sodium Potassium Chloride Carbon Dioxide Anion Gap BUN Creatinine Estimated GFR (MDRD) Glucose POC Capillary Glucose 176 H 192 H Hemoglobin A1c Calculated Osmolality Calcium Troponin I 0.02 Triglycerides Cholesterol LDL Cholesterol, Calc VLDL Cholesterol, Calc HDL Cholesterol Cholesterol/HDL Ratio TSH Urine Color Urine Clarity Urine pH Ur Specific [place] Urine Protein Urine Glucose (UA) Urine Ketones Urine Occult Blood Urine Nitrite Urine Bilirubin Urine Urobilinogen Ur Leukocyte Esterase Urine RBC Urine WBC Ur Epithelial Cells Urine Bacteria Hyaline Casts Urine Mucus RPR 07/28/16 07/28/16 07/28/16 03:00 03:00 05:32 WBC 8.6 RBC 4.92 Hgb 15.2 D Hct 45.6 MCV 93 MCH 30.9 MCHC 33.4 RDW 13.8 Plt Count 130 MPV 12.4 H ESR Sodium 133 L Potassium 4.2 Chloride 98 Carbon Dioxide 25 Anion Gap 14 BUN 15 Creatinine 0.70 Estimated GFR (MDRD) > 60 Glucose 157 H POC Capillary Glucose 168 H Hemoglobin A1c Calculated Osmolality 260 L Calcium 9.1 Troponin I Triglycerides 111 Cholesterol 148 LDL Cholesterol, Calc 78.8 VLDL Cholesterol, Calc 22.2 HDL Cholesterol 47.0 Cholesterol/HDL Ratio 3.1 TSH Urine Color Urine Clarity Urine pH Ur Specific [place] Urine Protein Urine Glucose (UA) Urine Ketones Urine Occult Blood Urine Nitrite Urine Bilirubin Urine Urobilinogen Ur Leukocyte Esterase Urine RBC Urine WBC Ur Epithelial Cells Urine Bacteria Hyaline Casts Urine Mucus RPR 07/28/16 10:28 WBC RBC Hgb Hct MCV MCH MCHC RDW Plt Count MPV ESR Sodium Potassium Chloride Carbon Dioxide Anion Gap BUN Creatinine Estimated GFR (MDRD) Glucose POC Capillary Glucose 178 H Hemoglobin A1c Calculated Osmolality Calcium Troponin I Triglycerides Cholesterol LDL Cholesterol, Calc VLDL Cholesterol, Calc HDL Cholesterol Cholesterol/HDL Ratio TSH Urine Color Urine Clarity Urine pH Ur Specific [place] Urine Protein Urine Glucose (UA) Urine Ketones Urine Occult Blood Urine Nitrite Urine Bilirubin Urine Urobilinogen Ur Leukocyte Esterase Urine RBC Urine WBC Ur Epithelial Cells Urine Bacteria Hyaline Casts Urine Mucus RPR MRI brain shows: IMPRESSION: 1. Acute patchy infarcts in the anterior right MCA territory. No associated hemorrhage or mass effect. 2. Underlying moderate for age signal changes most compatible with chronic small vessel disease, including several chronic lacunar infarcts in the cerebellum. - Assessment (1) CVA (cerebral vascular accident) Acute I63.9 - CEREBRAL INFARCTION, UNSPECIFIED Qualifiers: CVA mechanism: occlusion Precerebral and cerebral artery: middle cerebral artery Laterality of affected vessel: right Qualified Code(s): I63.511 - Cerebral infarction due to unspecified occlusion or stenosis of right middle cerebral artery Comment/Plan: MRI shows evidence of right middle cerebral artery stroke. (2) Hypertension Chronic I10 - ESSENTIAL (PRIMARY) HYPERTENSION Qualifiers: Hypertension type: essential hypertension Qualified Code(s): I10 - Essential (primary) hypertension Comment/Plan: Careful with the antihypertensive therapy not wanting to drop his blood pressure and exacerbate stroke. (3) Atrial fibrillation Chronic I48.91 - UNSPECIFIED ATRIAL FIBRILLATION Qualifiers: Atrial fibrillation type: persistent Qualified Code(s): I48.1 - Persistent atrial fibrillation Comment/Plan: Admit to telemetry and monitor. Hypertension diabetes give him reason to take full anticoagulation and discuss this with him. He prefers the less costly Coumadin. He agrees to follow up with his primary care provider and get the appropriate INRs checked. (4) Non-insulin dependent type 2 diabetes mellitus Chronic E11.9 - TYPE 2 DIABETES MELLITUS WITHOUT COMPLICATIONS Comment/Plan : Select scale insulin therapy and continuation of his previous diabetic medications. (5) Hyperlipidemia Chronic E78.5 - HYPERLIPIDEMIA, UNSPECIFIED Qualifiers: Hyperlipidemia type: mixed hyperlipidemia Qualified Code(s): E78.2 - Mixed hyperlipidemia Comment/Plan: Statin changed to Lipitor since he is on calcium channel mathew will interfere with his Zocor. Recheck lipids tomorrow. Case Care Discussed with: Patient, Family, Nursing Staff Education/Counseling Given To: Patient Education/Counseling Given Regarding: Diagnosis Total Time: 38 minutes Critical Care: No Code: 24738 (12+)
[2016-07-28] MEDS: ENOXAPARIN 40 MG/0.4 ML PFS SQ SCH (17:46)
[2016-07-28] MEDS ORDERED: WARFARIN 5 MG TAB PO ONE (19:30)
[2016-07-28] MEDS ORDERED: ATORVASTATIN 40 MG TAB PO SCH (21:00)
[2016-07-28] MEDS: AMLODIPINE 5 MG TAB PO SCH (21:14)
[2016-07-29] MEDS: REGULAR INSULIN 100 UNITS/ML - 3 ML VIAL SQ SCH (06:32)
[2016-07-29] MEDS: MetFORMIN 1000 MG IMMED REL TAB PO SCH (06:32)
[2016-07-29 07:53] VITALS: BP 136/91; TEMP 99
[2016-07-29] MEDS: CLOPIDOGREL 75 MG TAB PO SCH (08:01)
[2016-07-29] MEDS: METOPROLOL TARTRATE 100 MG TAB PO SCH (08:01)
[2016-07-29] MEDS: TAMSULOSIN HCL 0.4 MG CAP PO SCH (08:01)
[2016-07-29] MEDS: BENAZEPRIL 20 MG TAB PO SCH ×2 (08:02→08:07)
[2016-07-29 10:15] VITALS: PULSE 77
--- NOTE | 2016-07-29 10:40 | PCM.DCS92 ---
- Final/Secondary Discharge Diagnosis (1) CVA (cerebral vascular accident) Acute I63.9 - CEREBRAL INFARCTION, UNSPECIFIED Present on Admission: Yes occlusion middle cerebral artery right I63.511 - Cerebral infarction due to unspecified occlusion or stenosis of right middle cerebral artery Comment: MRI shows evidence of right middle cerebral artery stroke. (2) Hypertension Chronic I10 - ESSENTIAL (PRIMARY) HYPERTENSION Present on Admission: Yes essential hypertension I10 - Essential (primary) hypertension Comment: Careful with the antihypertensive therapy not wanting to drop his blood pressure and exacerbate stroke. (3) Atrial fibrillation Chronic I48.91 - UNSPECIFIED ATRIAL FIBRILLATION Present on Admission: Yes persistent I48.1 - Persistent atrial fibrillation Comment: Admit to telemetry and monitor. Hypertension diabetes give him reason to take full anticoagulation and discuss this with him. He prefers the less costly Coumadin. He agrees to follow up with his primary care provider and get the appropriate INRs checked. (4) Non-insulin dependent type 2 diabetes mellitus Chronic E11.9 - TYPE 2 DIABETES MELLITUS WITHOUT COMPLICATIONS Comment: Select scale insulin therapy and continuation of his previous diabetic medications. (5) Hyperlipidemia Chronic E78.5 - HYPERLIPIDEMIA, UNSPECIFIED Present on Admission: Yes mixed hyperlipidemia E78.2 - Mixed hyperlipidemia Comment: Statin changed to Lipitor since he is on calcium channel mathew will interfere with his Zocor. Recheck lipids tomorrow. Discharge Disposition: Discharge w/ Home Health Discharge Condition: Improved Cognitive Discharge Status: Unimpaired Home Medications / New Prescriptions: New Atorvastatin Calcium [Lipitor] 40 mg PO HS #30 tablet Oxycodone Immediate Release [Oxycodone Immediate Release (OxyIR)] 5 mg PO Q6H PRN #14 tablet PRN Reason: Moderate To Severe Pain Warfarin Sodium [Coumadin] 5 mg PO DAILY@1800 #30 tablet Continue Metoprolol Tartrate [Lopressor] 100 mg PO BID MetFORMIN (Immediate Release) [GLUCOPHAGE Immed Release] 1,000 mg PO BID Alfuzosin HCl [Alfuzosin HCl ER] 10 mg PO DAILY Amlodipine [Norvasc] 5 mg PO HS Benazepril HCl [Lotensin] 20 mg PO QAM Discontinued Simvastatin [Zocor] 40 mg PO HS Discharge Home Medication List Alfuzosin HCl [Alfuzosin HCl ER] 10 mg PO DAILY 07/27/16 [History Confirmed Last Taken Unknown] Amlodipine [Norvasc] 5 mg PO HS 07/27/16 [History Confirmed 07/27/16 Last Taken Unknown] Benazepril HCl [Lotensin] 20 mg PO QAM 07/27/16 [History Confirmed 07/27/16 Last Taken Unknown] MetFORMIN (Immediate Release) [GLUCOPHAGE Immed Release] 1,000 mg PO BID [History Confirmed 07/27/16 Last Taken Unknown] Metoprolol Tartrate [Lopressor] 100 mg PO BID 07/27/16 [History Confirmed Last Taken Unknown] Atorvastatin Calcium [Lipitor] 40 mg PO HS #30 tablet 07/29/16 [Rx Last Taken Unknown] Oxycodone Immediate Release [Oxycodone Immediate Release (OxyIR)] 5 mg PO Q6H PRN #14 tablet 07/29/16 [Rx Last Taken Unknown] Warfarin Sodium [Coumadin] 5 mg PO DAILY@1800 #30 tablet 07/29/16 [Rx Last Taken Unknown] 07/28/16 03:00 07/28/16 03:00 Laboratory Results - last 24 hr 07/27/16 07/28/16 07/28/16 11:30 10:28 17:02 POC Capillary Glucose 178 H 172 H RPR Nonreactive 07/28/16 07/29/16 07/29/16 22:42 00:17 05:52 POC Capillary Glucose 96 154 H 134 H RPR MRI of the brain showed the following: FINDINGS: Patchy restricted diffusion in the anterior right MCA territory affecting the operculum, anterior right Miranda radiata, and subcortical white matter and cortex of the right middle frontal gyrus (series 6, image 82). No contralateral or posterior fossa restricted diffusion. Major intracranial vascular flow voids are preserved. T2 and FLAIR hyperintensity in the acutely affected areas with no hemorrhage or mass effect. The underlying bilateral confluent cerebral white matter T2 and FLAIR hyperintensity. Occasional small chronic lacunar infarcts in the cerebellum, more so the left. Mild for age T2 heterogeneity in the deep teixeira matter nuclei appears mostly due to perivascular spaces. No cortical encephalomalacia or chronic cerebral blood products identified. No abnormal enhancement identified. Visible internal auditory structures appear normal. Mastoids are clear. Paranasal sinuses are clear. Negative orbit and scalp soft tissues. Incidental anterior accessory right parotid tissue. Negative visualized cervical spine. Normal bone marrow signal. IMPRESSION: 1. Acute patchy infarcts in the anterior right MCA territory. No associated hemorrhage or mass effect. 2. Underlying moderate for age signal changes most compatible with chronic small vessel disease, including several chronic lacunar infarcts in the cerebellum. O2 Device: Room Air Additional Instructions: Home Health PT Diet at Discharge: Low Salt, Diabetic, 1800 Calorie Activity: As Tolerated Discontinue use of:: Alcohol, All Types of Tobacco - DC Summary Notes HPI/Notes: Patient is a 75-year-old white male whose has agoraphobia. On weekends 1 of his sons will come by to pick him up for lunch. He was noted was noted by his son to be stumbling as he walked to the vehicle. Son was concerned he had a stroke when he noticed the left side of his face drooping. With this he was brought into the emergency room complaining for further evaluation. CT of the head failed to show any evidence of acute stroke but he did have some suggestion of significant tapering of the left carotid artery. On examination he was noted by the emergency room physician have weak left upper extremity left-sided neglect and left facial weakness with mild confusion. I discussed this with the family friend who was in the room at the time of my examination and she indicated that this is unusual for him. Significant is past his that he stopped his antihypertensive therapy within the past few months because of fear of his blood pressure dropping too low. He also was concerned about his blood sugar dropping with the glyburide which was discontinued as well. He did however continue his 325 mg aspirin, Zocor, as well as metformin 1000 mg twice daily. He claims to have quit smoking at least 48 years ago and does not drink alcoholic beverages. He mentions a coronary artery stent 7 [address] ago placed [address] Dr[address] Manrique at [facility]. Hospital Course Note:: Discharge summary on patient named RISHI ROSS admitted to [facility] on 07/27/16 by Jarod Mcdaniel MD. Date of discharge is 07/29/2016. He was admitted with a right middle cerebral artery stroke documented by MRI done yesterday felt to be related to the atrial fib that was noted on admission. He had shortly thereafter converted to sinus and has remained in sinus since however with his multiple risk factors it is felt that anticoagulation would benefit him greatly in reducing his risk for future events. I offered him the opportunity to take a novel agent versus Coumadin. Elected Coumadin even after I pointed out the disadvantages of such. His family indicated he might be interested in switching to the novel agent at some point time the future. Medication cost appears to be a factor for his compliance. He was advise that he would need to see on or Thursday with follow-up INRs. His Coumadin was not bridged for fear of developing a hemorrhagic conversion of his stroke. In terms of his left upper extremity and left facial weakness, they have improved at time of discharge and he no longer has any dysarthria. Speech therapy has cleared him for a standard consistency diet. He was ambulating well with physical therapy at time of discharge and anxious to go home. I have advised not to drive for 6 weeks but will leave the final decision for this up to his primary care provider . CC: fax number [phone] Dr. Manrique grocery deliverer in [place] Total Time: 45 min Code: 61662 (>30min.) - Physical Exam Vital Signs: Last Vital Signs Temp 99.0 F 07/29/16 07:52 Pulse 77 07/29/16 10:00 Resp 16 07/29/16 07:52 BP 136/91 07/29/16 07:52 Pulse Ox 96 07/29/16 07:52 Oxygen Pulse Oxygen Saturation 96 O2 Device Room Air Oxygen Flow Rate 1 Fraction of Inspired Oxygen ( FIO2) Constitutional: No apparent distress, Alert Oriented to: Time, Person, Place - HEENT Head: Normal (normocephalic, atraumatic.), Other (No cervical lymphadenopathy. No supraclavicular lymphadenopathy. Neck: No palpable mass, supple , trachea midline.) Eye: Other (Dysconjugate gaze and states everything is blurry with the use of his glasses). negative: Conjunctival Injection, Edema, Pale Conjunctiva, Scleral Icterus Oropharynx: Normal (Pharynx: Moist without exudate,Gums-no swelling, No oropharyngeal lesions or erythema, Mucous membranes are dry. But does have weakness left facial muscle.) ENT EAC: Normal (No oropharyngeal lesions or erythema. Mucous membranes are dry. ) TMJ: Normal. negative: Crepitance, Tender Nose: No Symptoms Reported (septum midline, Nares patent, without discharge or bleeding.) - Respiratory/Cardiovascular Respiratory: Normal - CTA (Clear to auscultation bilaterally. No wheezing, rales , rhonchi. Chest wall movements are symmetric. No use of accessory muscles to breathe.) Cardiovascular: Normal (RRR , Normal S1, S2. No murmurs, rubs, or gallops. PMI non-displaced. Carotids: no carotid bruits. No bradycardia or tachycardia. DP pulses 2+ bilaterally.) - GI Auscultation: Normal (normal active sounds) Palpation: Normal (Soft,non distended,nontender. No hepatosplenomegaly.) Tenderness: Non tender (No rebound or guarding) Gtz's Sign: Negative - Musculoskeletal Back: Normal (Non-Tender) Extremities: Normal (Normal tone, DP pulses 2+ bilaterally, No cyanosis or edema bilaterally, FROM bilaterally.) - Integumentary Skin: Normal (Warm dry no rashes) Lymphatics: Normal (No cervical lymphadenopathy. No supraclavicular lymphadenopathy.) - Neurologic Memory Impaired: Normal Motor Function: Normal (Motor 5/5 throughout.Normal tone, Pulses 2+ No cyanosis or edema, FROM) Cranial Nerve: Normal (CN II-XII intact sensation, strength 5/5) Cerebellar: Normal. negative: Ataxia, Past-Pointing Mood Description: Normal (Fully oriented. Normal and appropriate affect.) Thought: Coherent (But confused) Perception: Normal (Normal and appropriate affect.)
[2016-07-29] MEDS ORDERED: WARFARIN 5 MG TAB PO SCH (18:00)
== END 2016-07-29 12:59 | disposition home health service (06) | DRG 66 ==
LOC: ED 11:20 → EDBD 11:20 → PCU 13:21
PROVIDERS: ADMIT Internal Medicine; ATTEND Internal Medicine
DX: I63.511 Cerebral infarction due to unspecified occlusion or stenosis of right middle cerebral artery (principal); E11.65 Type 2 diabetes mellitus with hyperglycemia; I48.0 Paroxysmal atrial fibrillation; I10 Essential (primary) hypertension; E78.2 Mixed hyperlipidemia; I25.10 Atherosclerotic heart disease of native coronary artery without angina pectoris; I25.2 Old myocardial infarction; Z79.84 Long term (current) use of oral hypoglycemic drugs; Z79.899 Other long term (current) drug therapy; Z87.891 Personal history of nicotine dependence
CPT/HCPCS: 36415; 70450; 70553; 71010; 80048; 80053; 80061; 81001; 82043; 82962; 83036; 83090; 84443; 84484; 85025; 85027; 85610; 85651; 85730; 86038; 86592; 93005; 93306; 93880; 96361; 96372; 96374; 96375; 97161; 97165; 99285; A9577; G0237; J1170; J1650; J2405; J3490